=== PATIENT | male | born 1955 | race African-American/Black ===

== ENCOUNTER 2016-09-30 07:55 | Emergency (ER) | payer MEDICARE ==
[~2016-09-30 07:55] MED LIST: KDUR PO; KEPPRA PO; LIBRAX PO; MOTRIN PO; NO MEDICATIONS
[2016-09-30 08:05] LABS: BASOPHIL# 0.1 X10e3 (0.0-0.3); BASOPHIL% 2.1 % (0.0-2.5); EOSINOPHIL# 0.1 X10e3 (0.0-0.7); HEMATOCRIT 30.4 % (38.0-50.0); HEMOGLOBIN 10.1 gm/dl (13.0-17.0); LYMPHOCYTE# 1.6 X10e3 (1.0-3.5); MEAN CELL VOLUME 92.6 FL (83-96); MEAN CORPUSCULAR HEMOGLOBIN 30.8 PG (28-34); MEAN CORPUSCULAR HGB CONC 33.3 g/dL (30-36); MEAN PLATELET VOLUME 7.8 FL (6.5-11.5); MONOCYTE# 0.6 X10e3 (0.0-1.0); NEUTROPHIL# 1.9 X10e3 (1.5-7.1); NEUTROPHIL% 45.9 % (40.0-75.0); PLATELET COUNT 72 X10e3 (140-420); RED BLOOD COUNT 3.28 X10e6 (3.90-5.60); RED CELL DISTRIBUTION WIDTH 15.3 % (11.0-15.5); WHITE BLOOD COUNT 4.3 X10e3 (4.0-10.5)
[2016-09-30 08:07] LABS: DIFF IND YES
[2016-09-30 08:22] LABS: PLATELET ESTIMATE DECREASED (NORMAL)
[2016-09-30 08:27] LABS: ALBUMIN SERUM 3.9 g/dL (3.5-5.0); ALCOHOL BLOOD 145 mg/dL (0); ALKALINE PHOSPHATASE 125 U/L (32-92); ALT (SGPT) 74 U/L (10-40); AST (SGOT) 304 U/L (10-42); BILIRUBIN, DIRECT 0.3 mg/dL (0.0-0.2); BILIRUBIN,INDIRECT 0.3 mg/dL (0.0-0.9); BILIRUBIN,TOTAL 0.6 mg/dL (0.2-2.0); BLOOD UREA NITROGEN 12 mg/dL (9-23); CALCIUM SERUM 8.4 mg/dL (8.4-10.2); CARBON DIOXIDE 25 mmol/L (22-31); CHLORIDE 103 mmol/L (100-111); GLOM FILT RATE Estimated ABOVE60 mL/min (>60); GLUCOSE FASTING 100 mg/dL (70-110); POTASSIUM 3.9 mmol/L (3.5-5.1); PROTEIN TOTAL SERUM 7.7 g/dL (6.0-8.3); SODIUM 140 mmol/L (135-145)
== END 2016-09-30 16:27 | disposition home or self-care (01) ==
LOC: SED 07:55
PROVIDERS: Emergency Medicine
DX: G40.409 Other generalized epilepsy and epileptic syndromes, not intractable, without status epilepticus (principal); F17.200 Nicotine dependence, unspecified, uncomplicated
CPT/HCPCS: 36415; 80048; 80076; 82947; 85025; 96361; 96374; 99285; G0480; J2060

== ENCOUNTER 2016-12-25 19:49 | Emergency (ER) | payer MEDICARE ==
[2016-12-25 21:05] LABS: BASOPHIL% 0.5 % (0-2.5); EOSINOPHIL% 0.2 % (0.0-7.0); HEMATOCRIT 29.3 % (38.0-50.0); HEMOGLOBIN 10.1 gm/dL (13.0-16.0); LYMPHOCYTE# 0.6 X10e3 (1.0-3.5); LYMPHOCYTE% 11.6 % (17.0-45.0); MEAN CELL VOLUME 91.4 FL (83-96); MEAN CORPUSCULAR HEMOGLOBIN 31.7 PG (28-34); MEAN CORPUSCULAR HGB CONC 34.6 g/dL (30-36); MEAN PLATELET VOLUME 8.5 FL (6.5-11.5); MONOCYTE# 0.4 X10e3 (0-1.0); MONOCYTE% 6.8 % (3.0-12.0); NEUTROPHIL# 4.2 X10e3 (1.5-7.1); NEUTROPHIL% 80.9 % (40-75); RED CELL DISTRIBUTION WIDTH 14.5 % (11.0-15.5); WHITE BLOOD COUNT 5.2 X10e3 (4.0-10.5)
[2016-12-25 21:07] LABS: PLATELET COUNT 61 X10e3 (140-420)
[2016-12-25 21:15] LABS: DIFF IND NO
[2016-12-25 21:47] LABS: URINE SOURCE CLEAN CATCH
[2016-12-25 21:53] LABS: URINE APPEARANCE CLEAR; URINE BILIRUBIN NEG (NEG); URINE BLOOD 1+ (NEG); URINE COLOR YELLOW; URINE GLUCOSE NEG (NEG); URINE KETONE NEG (NEG); URINE LEUKOCYTE ESTERASE NEG (NEG); URINE NITRATE NEG (NEG); URINE PROTEIN 1+ (NEG); URINE SPECIFIC GRAVITY 1.014 (1.003-1.035)
[2016-12-25 21:56] LABS: URINE BACTERIA AUWI NEG (NEGATIVE); URINE SQUAMOUS EPITHELIAL CELL OCC /[HPF]
[2016-12-25 22:06] LABS: CULTURE INDICATED? NO
[2016-12-25 22:11] LABS: AMPHETAMINE NEG (NEG); BARBITURATES NEG (NEG); BENZODIAZEPINES NEG (NEG); COCAINE NEG (NEG); MARIJUANA NEG (NEG); OPIATES NEG (NEG); TRICYCLIC ANTIDEPRESSANTS NEG (NEG); U METHADONE NEG (NEG)
[2016-12-25 23:05] LABS: ALBUMIN SERUM 3.9 g/dL (3.5-5.0); ALKALINE PHOSPHATASE 106 U/L (32-92); ALT (SGPT) 108 U/L (10-40); AST (SGOT) 300 U/L (10-42); BILIRUBIN, DIRECT 0.6 mg/dL (0.0-0.2); BILIRUBIN,INDIRECT 1.1 mg/dL (0.0-0.9); BILIRUBIN,TOTAL 1.7 mg/dL (0.2-2.0); BLOOD UREA NITROGEN 12 mg/dL (9-23); BUN/CREATININE RATIO 13.33; CALCIUM SERUM 9.1 mg/dL (8.4-10.2); CARBON DIOXIDE 26 mmol/L (22-31); CHLORIDE 100 mmol/L (100-111); CREATININE SERUM 0.9 mg/dL (0.6-1.4); GLUCOSE FASTING 148 mg/dL (70-110); POTASSIUM 3.5 mmol/L (3.5-5.1); PROTEIN TOTAL SERUM 8.1 g/dL (6.0-8.3); SODIUM 138 mmol/L (135-145)
[2016-12-25 23:06] LABS: ALCOHOL BLOOD <5 mg/dL (0)
== END 2016-12-26 05:13 ==
LOC: CED 19:49
PROVIDERS: Emergency Medicine
DX: G40.909 Epilepsy, unspecified, not intractable, without status epilepticus (principal); K70.10 Alcoholic hepatitis without ascites; F10.20 Alcohol dependence, uncomplicated; I10 Essential (primary) hypertension; F17.200 Nicotine dependence, unspecified, uncomplicated; Z79.899 Other long term (current) drug therapy
CPT/HCPCS: 36415; 80048; 80076; 80307; 81003; 82947; 85025; 96365; 96375; 99285; G0480; J1953; J2060; J2405

== ENCOUNTER 2016-12-26 05:59 | Inpatient (IN) | payer MEDICARE ==
--- NOTE | ~2016-12-26 | PA ---
Unit #: [id number] #: [id number] Patient: NOEL SANDY [id number] [place] [address] [id number] MR#: [id number] NAME: NOEL SANDY ROOM: [facility]4 Age: 61 Sex: M Admission Date: 12/26/2016 : 1955 Date of Assessment: 12/26/2016 Attending Physician: Zeus Jones M.D. Admitting Physician: Zeus Jones M.D. Primary Care Physician: Primary Care Physician No PSYCHIATRIC ASSESSMENT IDENTIFYING INFORMATION The patient is a 61-year-old single white male admitted to the [address] [place] [address] for alcohol detox. CHIEF COMPLAINT None given. INFORMANT(S) Patient, reliability is fair. HISTORY OF PRESENT ILLNESS The patient is a 61-year-old white male admitted reporting use of a pint of gin on a daily basis. The patient reports a history of withdrawal seizures stating that he had seizure on 12/25/2016. The patient reports no recent changes in mood, sleep, or appetite. He denies prior history of chemical dependence or other psychiatric treatment. When seen today, the patient is abed, resting comfortably and cannot be aroused for interview. PAST PSYCHIATRIC HISTORY None. PAST MEDICAL HISTORY Noncontributory. MEDICATIONS None. ALLERGIES None. FAMILY HISTORY None reported. SOCIAL HISTORY The patient's substance use history is as noted previously, and he is a smoker. MENTAL STATUS EXAMINATION Examination at this time reveals the patient to be a soundly sleeping male who cannot be aroused for interview in spite of multiple efforts to do so. ASSETS AND LIABILITIES Unit #: [id number] #: [id number] Patient: NOEL SANDY The patient's assets: Motivation for change. Liabilities: None noted. DIAGNOSTIC IMPRESSION 1. Alcohol use disorder. 2. History of alcohol withdrawal seizures. TREATMENT PLAN The patient remains hospitalized for safety and stabilization. Suicide precautions are in place, and a routine detoxification protocol for alcohol has been initiated. The patient will participate in appropriate order of milieu activities with followup to take place through the auspices of community mental health resources. ESTIMATED LENGTH OF STAY 5 to 7 days. Dictated by... Zeus Jones M.D. Jewell TD: 12/26/2016 14:26 JOB #: [id number] PSYCHIATRIC ASSESSMENT Page 1 of 1 X Zeus Jones MD PSYCHIATRIC ASSESSMENT
--- NOTE | ~2016-12-26 | PN ---
Unit #: [id number] #: [id number] Patient: NOEL SANDY [id number] [facility] [address] [place] [address] [id number] MR#: [id number] NAME: NOEL SANDY ROOM: [facility]4 Age: 61 Sex: M Admission Date: 12/26/2016 : 1955 Attending Physician: Zeus Jones M.D. Admitting Physician: Zeus Jones M.D. Primary Care Physician: Primary Care Physician Carola HOFFMAN PROGRESS NOTES DATE 12/29/2016 DISCUSSION The patient offers no new complaints today. He states that he "needs to go home for about 4 hours." I have explained to him that we do not provide passes at this facility. He has tolerated reinitiation of Keppra without complaint and is continuing to express interest in residential chemical dependence treatment. Dictated by... Zeus Jones M.D. CB/sydnee TD: 12/30/2016 03:19 JOB #: [id number] YASMIN PROGRESS NOTES Page 1 of 1 X Zues Jones MD X PROGRESS NOTE
--- NOTE | ~2016-12-26 | HP ---
Unit #: [id number] #: [id number] Patient: NOEL SANDY [id number] [facility] [address] [place] [address] [id number] MR#: [id number] NAME: NOEL SANDY ROOM: P204 Age: 61 Sex: M Admission Date: 12/26/2016 : 1955 Attending Physician: Zeus Jones M.D. Admitting Physician: Zeus Jones M.D. Primary Care Physician: Primary Care Physician No HISTORY AND PHYSICAL HISTORY OF PRESENT ILLNESS Noel is a 61 year old female admitted to [address] [place] [address] because of his abuse of alcohol. He is detoxing. PAST MEDICAL HISTORY 1. Long history of alcohol abuse. 2. History of withdrawal seizures. 3. Chronic pancreatitis. 4. Crirrhosis. PAST SURGICAL HISTORY Bilateral arms. ALLERGIES No known drug allergies. SOCIAL HISTORY Smokes less than one-half pack per day. Drinks at least 8 pints of gin on a daily basis and denies illicit drug use. FAMILY HISTORY Medically not known. REVIEW OF SYSTEMS He does not answer questions appropriately. Nursing staff reports no vomiting or diarrhea, but he has complained of abdominal pain and headache. There has been no reports of hematemesis or melena. CURRENT MEDICATIONS Detox protocol. PHYSICAL EXAMINATION GENERAL: Alert although appears acutely ill and much older than his stated age of 61. VITAL SIGNS: Blood pressure 154/104, heart rate 78, respirations 16, and temperature 98.6. WEIGHT: 150. HEIGHT: 5 feet 6 inches. SKIN: Warm and dry without rash or lesion. HEENT: Normocephalic. TMs not viewed. Oral and nasal passages clear. Conjunctivae clear. PERRLA. EOMs intact. NECK: Supple without lymphadenopathy or thyromegaly. HEART: Regular rate and rhythm without murmur. Unit #: [id number] #: [id number] Patient: NOEL SANDY LUNGS: Clear. ABDOMEN: Soft with diffuse minimal tenderness. : Not done. EXTREMITIES: No evidence of cyanosis, clubbing or edema. Moves all without focal deficit. NEUROLOGICAL: Unable to complete extended exam. He does move all extremities without focal deficit. Hand social media executive is equal. Gait not observed. IMPRESSION Psychiatric admission. RECOMMENDATIONS PSYCHIATRIC: Per psychiatrist. MEDICAL: I see no contraindication to participate in this facility's activities. MEDICAL PROGNOSIS Good. MEDICAL CONDITION Stable. Dictated by... Michaelle Pond P.A.-C. for Laura Mensah/swapnil TD: 12/27/2016 06:59 JOB #: [id number] HISTORY AND PHYSICAL Page 1 of 1 X Michaelle Pond X HISTORY AND PHYSICAL
--- NOTE | ~2016-12-26 | PN ---
Unit #: [id number] #: [id number] Patient: NOEL SANDY [id number] [facility] [address] [place] [address] [id number] I MR#: [id number] NAME: NOEL SANDY ROOM: [facility] Age: 61 Sex: M Admission Date: 12/26/2016 : 1955 Attending Physician: Zeus Jones M.D. Admitting Physician: Zeus Jones M.D. Primary Care Physician: Primary Care Physician Carola HOFFMAN PROGRESS NOTES DATE 12/28/2016 DISCUSSION The patient is more active within the therapeutic milieu. Contact with his (1) ___ indicate that the patient has been on prescribed Keppra in the past, and we will restart this medication at a dose of 1000 mg twice daily. The patient is now requesting treatment in a residential chemical dependence treatment facility, and I will write the order for his social security assessor to confer with him regarding this. Dictated by... Zeus Jones M.D. CB/swapnil TD: 12/28/2016 14:33 JOB #: [id number] YASMIN GILES NOTES Page 1 of 1 X Zeus Jones MD PROGRESS NOTE
--- NOTE | ~2016-12-26 | DS ---
Unit #: [id number] #: [id number] Patient: NOEL SANDY [id number] [place] [address] [id number] MR#: [id number] NAME: NOEL SANDY ROOM: [facility] Age: 61 Sex: M Admission Date: 12/26/2016 : 1955 Discharge Date: 12/30/2016 Attending Physician: Zeus Jones M.D. Primary Care Physician: Primary Care Physician No DISCHARGE SUMMARY REASON FOR ADMISSION The patient is a 61-year-old male, admitted to the [address] [place] [address] unit for alcohol detox. He had recently suffered a seizure had been related to alcohol withdrawal. HOSPITAL COURSE The patient was admitted to the [address] [place] [address] unit and placed on routine detoxification protocol for alcohol. Given his recent seizure and history of seizure activity as well as a history of having been treated with Keppra in the past, the patient was restarted on this medication at dose of 1000 mg b.i.d. His stay in the hospital was an otherwise uneventful, though the patient seemed to have rather unrealistic expectations of inpatient care including a 4-hour pass transportation to and from various facilities, etc. By 12/30/2016, the patient's detox was complete and discharge was ordered. FINAL DIAGNOSES Alcohol use disorder, seizure disorder, probably alcohol withdrawal induced. DISPOSITION ON DISCHARGE The patient is discharged on the following medications; Klor-Con M20 one tablet daily for potassium supplementation, Keppra 1000 mg b.i.d. for seizure disorder. DISCHARGE INSTRUCTIONS No dietary or physical restrictions were placed on the patient at the time of discharge. FOLLOWUP Followup will take place through the auspices of community mental health and chemical dependency treatment resources. PROGNOSIS The patient's prognosis is considered fair. Dictated by... Zeus Jones M.D. CB/scottl TD: 12/31/2016 02:46 Unit #: [id number] #: [id number] Patient: NOEL SANDY JOB #: [id number] DISCHARGE SUMMARY Page 1 of 1 X Zeus Jones MD X DISCHARGE SUMMARY
--- NOTE | ~2016-12-26 | PN ---
Unit #: [id number] #: [id number] Patient: NOEL SANDY [id number] [facility] [address] [place] [address] [id number] MR#: [id number] NAME: NOEL SANDY ROOM: [facility]4 Age: 61 Sex: M Admission Date: 12/26/2016 : 1955 Attending Physician: Zeus Jones M.D. Admitting Physician: Zeus Jones M.D. Primary Care Physician: Primary Care Physician Carola GILES NOTES DATE 12/27/2016 DISCUSSION The patient is abed resting comfortably today. He arouses without difficulty and offers no new complaints. He does, however, seem to imply that he may have had a seizure disorder not entirely based upon alcohol withdrawal and claims to have been on medication for seizures in the past. We will contact the patient's last known pharmacy, [facility] [address] [facility] in order ascertain whether the patient does in fact need to be on any anticonvulsant or other medications. Otherwise, the patient's detox is thus far uneventful. Dictated by... Zeus Jones M.D. CB/ashkan TD: 12/27/2016 15:02 JOB #: [id number] YASMIN GILES NOTES Page 1 of 1 X Zeus Jones MD PROGRESS NOTE
[2016-12-27 10:29] LABS: ALBUMIN SERUM 4.3 g/dL (3.5-5.0); BILIRUBIN,TOTAL 1.9 mg/dL (0.2-2.0); CALCIUM SERUM 9.7 mg/dL (8.4-10.2); CREATININE SERUM 1.1 mg/dL (0.6-1.4); GLOM FILT RATE Estimated 84.7 mL/min (>60); PROTEIN TOTAL SERUM 8.4 g/dL (6.0-8.3)
== END 2016-12-30 16:36 | disposition hospice, home (50) | DRG 897 ==
LOC: P2S 05:59
PROVIDERS: Specialist
PROC: HZ2ZZZZ Detoxification Services for Substance Abuse Treatment (ICD-10-PCS; principal; 2016-12-26)
DX: F10.239 Alcohol dependence with withdrawal, unspecified (principal); F17.210 Nicotine dependence, cigarettes, uncomplicated; G40.909 Epilepsy, unspecified, not intractable, without status epilepticus
CPT/HCPCS: 80053; 86592; J2550